=== PATIENT | male | born 1990 | race Caucasian/White ===

== ENCOUNTER 2016-10-06 17:30 | Emergency (ER) | payer OTHER ==
[~2016-10-06] VITALS: Ht 165.1 cm; Wt 75.0 kg
[2016-10-06 17:55] VITALS: Ht 165.1 cm; Wt 75.0 kg
[2016-10-06] MEDS ORDERED: IBUPROFEN 800 MG TAB PO ONE (18:30)
--- NOTE | 2016-10-06 19:08 | RADRPT ---
PROCEDURE: Right hand series CLINICAL INDICATION: Pain status post trauma TECHNIQUE: AP, oblique, and lateral views COMPARISON: None available FINDINGS: Soft tissue swelling is present of the right fourth and fifth rays. An acute, closed, right fifth m etacarpal neck fracture is present with mild palmar angulation of the fifth metatarsal head fragment . Approximately 1 mm of displacement in a radial direction is noted of the fracture fragments. A c omminuted, closed oblique fracture through the base of the right fourth metacarpal with 1 mm displac ement radially of the proximal fracture fragment is noted. No definite evidence for dislocations ar e present. The mineralization and the joint spaces are otherwise well maintained. No radiodense fo reign bodies are present. IMPRESSION: 1. Closed, fractures of the right fifth metacarpal neck and right fourth metacarpal base with minim al displacement as noted above. 2. No evidence for dislocations or radiodense foreign bodies. 3. Soft tissue swelling of the right fourth and fifth rays. RPTAT: HDC .Maria Antonia Philip MD, Date Time Electronically viewed and signed by .Maria Antonia Philip MD, on 10/06/2016 19:07 .C/
[2016-10-06] MEDS ORDERED: HYDR-902 PO (19:19)
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
[2016-10-06 20:12] VITALS: BP 121/76; PULSE 68; RESP 18; TEMP 97
== END 2016-10-06 20:12 | disposition home or self-care (01) ==
LOC: FTE 17:30
DX: S62.334A Displaced fracture of neck of fourth metacarpal bone, right hand, initial encounter for closed fracture (principal); F17.210 Nicotine dependence, cigarettes, uncomplicated; Y04.0XXA Assault by unarmed brawl or fight, initial encounter
CPT/HCPCS: 29125; 73130; Z7502; Z7610

== ENCOUNTER 2016-12-10 19:17 | Emergency (ER) | payer OTHER ==
[~2016-12-10] VITALS: Ht 162.6 cm; Wt 76.0 kg
[~2016-12-10 19:17] MED LIST: HYDR-902 PO
[2016-12-10 19:31] VITALS: Ht 162.6 cm; Wt 76.0 kg
--- NOTE | 2016-12-10 19:59 | ERD ---
ER Documentation Chief Complaint Date/Time DATE: 12/10/16 TIME: 19:57 Chief Complaint fell from work - hit his back - c/o pain right now HPI 26-year-old male states that he slipped and fell at work this afternoon complaining of low back pain. 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 He has no pain at rest, only pain noted when he is moving, achy, localized pain. He denies saddle anesthesia loss of bowel bladder function. ROS All systems reviewed and are negative except as per history of present illness. Medications Home Meds Active Scripts Ibuprofen* (Motrin*) 600 Mg Tab, 600 MG PO Q6, #30 TAB Prov:STACI PINTO PA-C 12/10/16 Hydrocodone/Acetaminophen ([place] 10-325 Tablet) 1 Each Tablet, 1 TAB PO Q6H Y for PAIN, #20 TAB Prov:SARAHY COLVIN DO 10/06/16 Allergies Allergies: Coded Allergies: No Known Allergy (Unverified , 10/06/16) PMhx/Soc Medical and Surgical Hx: pt denies Medical Hx, pt denies Surgical Hx History of Surgery: No (DENIES MEDICAL AND SURGICAL HX.) Hx Alcohol Use: Yes Hx Substance Use: Yes Hx Tobacco Use: Yes Smoking Status: Current every day smoker Physical Exam Vitals Vital Signs Date Time Temp Pulse Resp B/P Pulse Ox O2 Delivery O2 Flow Rate FiO2 12/10/16 19:31 96.3 91 20 117/62 96 Physical Exam General: Well-developed, well-nourished. The patient appears in no acute distress. HEENT: Head is normocephalic, atraumatic. No scleral icterus. Neck: Supple. Nontender. Lungs: Clear to auscultation. Normal air movement. Heart: Regular rate and rhythm. S1 and S2 are normal. No murmurs, gallops, or rubs. Abdomen: Nondistended. Back: No midline tenderness, no bony tenderness, pain only noted with back flexion. Strength lower extremities 5 out of 5 bilaterally. Extremities: No clubbing or cyanosis. Normal pulses. Moving extremities x 4. No weakness. Neurologic: Alert and oriented 3. No focal deficits. Skin: Normal turgor. No rash or lesions. Results 24 hrs Current Medications Medications (Trade) Dose Ordered Sig/Todd Route PRN Reason Start Time Stop Time Status Last Admin Dose Admin Ibuprofen (Motrin) 600 mg ONCE ONCE PO 12/10/16 20:00 12/10/16 20:01 DC 12/10/16 20:04 DIAGNOSTIC IMAGING REPORT Patient: AARON WONG : 1990 Age: 26 Sex: M MR #: [id number] DOS: 12/10/161954 Ordering MD: STACI PINTO PA-C Location: [facility] Room/Bed: PROCEDURE: XR Lumbar Spine. CLINICAL INDICATION: Trauma due to a fall. Low back pain. TECHNIQUE: Three views. AP, lateral and cone-down lateral view of the lumbar spine were obtained. COMPARISON: No prior studies are available for comparison. FINDINGS: There is mild scoliosis convex left. Alignment is otherwise normal. There is no fracture. There is no lytic or blastic lesion. The disk height is normal. The paravertebral soft tissues are unremarkable. IMPRESSION: 1. Mild scoliosis convex left. 2. Otherwise normal images of the lumbar spine. RPTAT: QQ .Camden Boothe MD, MD Date Time Electronically viewed and signed by .Camden Boothe MD, MD on 12/10/2016 20:50 .R/ CC: STACI PINTO PA-C Procedures/MDM 26-year-old male comes in with low back pain status post fall. This appears to be a strain, without any evidence of fracture, dislocation, signs of compression syndrome or cauda equina. X-rays are unremarkable. Patient will be discharged home. Departure Diagnosis: Primary Impression: Injury of back Condition: Good STACI PINTO PA-C Dec 10, 2016 19:59
[2016-12-10] MEDS ORDERED: IBUPROFEN 600 MG TAB PO ONE (20:00)
--- NOTE | 2016-12-10 20:50 | RADRPT ---
PROCEDURE: XR Lumbar Spine. CLINICAL INDICATION: Trauma due to a fall. Low back pain. TECHNIQUE: Three views. AP, lateral and cone-down lateral view of the lumbar spine were obtained. COMPARISON: No prior studies are available for comparison. FINDINGS: There is mild scoliosis convex left. Alignment is otherwise normal. There is no fracture. There is no lytic or blastic lesion. The disk height is normal. The paravertebral soft tissues are unremarkable. IMPRESSION: 1. Mild scoliosis convex left. 2. Otherwise normal images of the lumbar spine. RPTAT: QQ .Camden Boothe MD, Date Time Electronically viewed and signed by .Camden Boothe MD, on 12/10/2016 20:50 .R/
[2016-12-10] MEDS ORDERED: IBUP-1542 PO (21:03)
== END 2016-12-10 21:26 | disposition home or self-care (01) ==
LOC: FTE 19:17
DX: S39.92XA Unspecified injury of lower back, initial encounter (principal); F17.210 Nicotine dependence, cigarettes, uncomplicated; W01.198A Fall on same level from slipping, tripping and stumbling with subsequent striking against other object, initial encounter; Y92.89 Other specified places as the place of occurrence of the external cause
CPT/HCPCS: 72100; Z7502; Z7610

== ENCOUNTER 2017-01-07 10:37 | Emergency (ER) | payer OTHER ==
[~2017-01-07] VITALS: Ht 165.1 cm; Wt 75.0 kg
[~2017-01-07 10:37] MED LIST changes: +IBUP-1542 PO
[2017-01-07 10:39] VITALS: Ht 165.1 cm; Wt 75.0 kg
--- NOTE | 2017-01-07 11:14 | ERD ---
ER Documentation Chief Complaint Date/Time DATE: 01/07/17 TIME: 11:10 Chief Complaint 12/22 r. ankle pain x 2 days HPI Patient is a 26-year-old male with no past medical history presents to the emergency department with right ankle pain 2 days. Patient states that he was playing basketball when he jumped up to get the ball and twisted his ankle. Patient states he is able to bear weight to the affected extremity. Patient does have significant bruising and some swelling. Patient denies any previous injuries to the affected extremity. Patient denies any fevers, chills, nausea, vomiting, head injury, lower back pain or loss of consciousness. 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 ROS All systems reviewed and are negative except as per history of present illness. Medications Home Meds Active Scripts Ibuprofen* (Motrin*) 600 Mg Tab, 600 MG PO Q6, #30 TAB Prov:TEX VASQUEZ PA-C 01/07/17 Ibuprofen* (Motrin*) 600 Mg Tab, 600 MG PO Q6, #30 TAB Prov:STACI PINTO PA-C 12/10/16 Hydrocodone/Acetaminophen ([place] 10-325 Tablet) 1 Each Tablet, 1 TAB PO Q6H Y for PAIN, #20 TAB Prov:SARAHY COLVIN DO 10/06/16 Allergies Allergies: Coded Allergies: No Known Allergy (Unverified , 01/07/17) PMhx/Soc History of Surgery: No (DENIES MEDICAL AND SURGICAL HX.) Hx Alcohol Use: Yes Hx Substance Use: Yes Hx Tobacco Use: Yes Physical Exam Vitals Vital Signs Date Time Temp Pulse Resp B/P Pulse Ox O2 Delivery O2 Flow Rate FiO2 01/07/17 10:39 98.2 68 19 125/86 100 Physical Exam GENERAL: Well-developed, well-nourished male. Appears in no acute distress. HEAD: Normocephalic, atraumatic. EYES: Pupils are equally reactive bilaterally. EOMs grossly intact. No conjunctival erythema. ENT: Moist mucous membranes. No uvula deviation. No kissing tonsils. NECK: Supple. No meningismus. Normal range of motion of the neck. LUNG: Clear to auscultation bilaterally. No rhonchi, wheezing, rales or coarse breath sounds. HEART: Regular rate and rhythm. No murmurs, rubs or gallops. EXTREMITIES: Equal pulses bilaterally. No peripheral clubbing, cyanosis or edema. No unilateral leg swelling. NEUROLOGIC: Alert and oriented. Moving all four extremities without any difficulty. Normal speech. Steady gait. SKIN: Normal color. Warm and dry. No rashes or lesions. RIGHT ANKLE: No deformity noted. Ecchymosis and swelling noted to the lateral aspect of the foot and ankle. Skin intact. Full ROM of motion of the knee. Decreased range of motion of the ankle secondary to swelling. Nontender to palpation of the proximal tibia/fibula. Tender to palpation over the lateral ankle, midfoot and lateral foot. Sensation intact to light touch. Neurovascularly intact. (Able to plantarflex, dorsiflex, shalonda foot, invert foot , raise big toe.) 2+ DP and DT pulses. Soft compartments. Procedures/MDM ED COURSE: The patient was stable throughout ED course. I kept the patient and/or family informed of laboratory and diagnostic imaging results throughout the ED course. DIAGNOSTIC IMAGING: Read by radiologist. DIAGNOSTIC IMAGING REPORT Patient: AARON WONG : 1990 Age: 26 Sex: M MR #: [id number] DOS: 01/07/17 1105 Ordering MD: TEX VASQUEZ PA-C Location: [facility] Room/Bed: PROCEDURE: Right ankle series CLINICAL INDICATION: right ankle and foot pain. Atraumatic pain TECHNIQUE: 3 views. COMPARISON: None FINDINGS: No fractures are noted. No lesions are visualized. No significant degenerative changes are noted. The ankle mortise is intact. The soft tissues are unremarkable. IMPRESSION: 1. No bony abnormalities are identified. RPTAT: HH .Jesse Graves MD, Date Time Electronically viewed and signed by .Jesse Graves MD, on 01/07/2017 12: 16 .G/ CC: TEX VASQUEZ PA-C DIAGNOSTIC IMAGING REPORT Patient: AARON WONG : 1990 Age: 26 Sex: M MR #: [id number] DOS: 01/07/17 1105 Ordering MD: TEX VASQUEZ PA-C Location: [facility] Room/Bed: PROCEDURE: Right foot series CLINICAL INDICATION: right ankle and foot pain. TECHNIQUE: 3 views. COMPARISON: None FINDINGS: No fractures are noted. Joint spaces are well maintained. No erosions are noted. The soft tissues are unremarkable. IMPRESSION: 1. No bony abnormalities are identified. RPTAT: HH .Jesse Graves MD, MD Date Time Electronically viewed and signed by .Jesse Graves MD, on 01/07/2017 12: 16 .G/ CC: TEX VASQUEZ PA-C PROCEDURES: None. MEDICAL DECISION MAKING: This is a 26-year-old male who presents with right ankle pain after ankle twist injury while playing basketball 2 days ago. Is able to ambulate on the affected extremity without any difficulty.. Vital signs were reviewed. Patient was afebrile. X-ray imaging of the right ankle and foot were unremarkable. Given these findings, the patient's presentation is most consistent with ankle and foot strain. I have a much lower clinical concern for ankle dislocation, ankle fracture, tibia fracture, fibula fracture, tibial plateau fracture, Maison[place]uve fracture, foot fracture, osteomyelitis, septic joint, gout, osteoarthritis, DVT, compartment syndrome. At this time, unable to rule out any tendon and ligament injuries. PRESCRIPTIONS: Ibuprofen DISCHARGE: At this time, patient is stable for discharge and outpatient management. Given a copy of all imaging studies obtained today. Patient was given a work note to avoid any weightbearing for one week. RICE therapy and ROM exercises were advised to avoid stiffness. I have instructed the patient to follow-up with his/ her primary care physician in 1-2 days. I have discussed with the patient the possibility of needing to see an metallurgical specialist for further workup and imaging if the pain persists. I have instructed the patient to promptly return to the ER for any new or worsening symptoms including increased pain, swelling, redness, warmth or fever. The patient and/or family expressed understanding of and agreement with this plan. All questions were answered. Home care instructions were provided. Departure Diagnosis: Primary Impression: Ankle injury Encounter type: initial encounter Laterality: right Qualified Code: S99.911A - Ankle injury, right, initial encounter Condition: Stable Patient Instructions: What Are Ankle Sprains? Referrals: [facility] YOU HAVE RECEIVED A MEDICAL SCREENING EXAM AND THE RESULTS INDICATE THAT YOU DO NOT HAVE A CONDITION THAT REQUIRES URGENT TREATMENT IN THE EMERGENCY DEPARTMENT. FURTHER EVALUATION AND TREATMENT OF YOUR CONDITION CAN WAIT UNTIL YOU ARE SEEN IN YOUR DOCTORS OFFICE WITHIN THE NEXT 1-2 DAYS. IT IS YOUR RESPONSIBILITY TO MAKE AN APPOINTMENT FOR FOLOW-UP CARE. IF YOU HAVE A PRIMARY DOCTOR --you should call your primary doctor and schedule an appointment IF YOU DO NOT HAVE A PRIMARY DOCTOR YOU CAN CALL OUR PHYSICIAN REFERRAL HOTLINE AT IF YOU CAN NOT AFFORD TO SEE A PHYSICIAN YOU CAN CHOSE FROM THE FOLLOWING [facility] [address] [facility] [address] [facility]. [facility] [address] [facility] [address] [facility] [address] [facility]. [facility]. [address] [facility] [address] [facility] YOU HAVE RECEIVED A MEDICAL SCREENING EXAM AND THE RESULTS INDICATE THAT YOU DO NOT HAVE A CONDITION THAT REQUIRES URGENT TREATMENT IN THE EMERGENCY DEPARTMENT. FURTHER EVALUATION AND TREATMENT OF YOUR CONDITION CAN WAIT UNTIL YOU ARE SEEN IN YOUR DOCTORS OFFICE WITHIN THE NEXT 1-2 DAYS. IT IS YOUR RESPONSIBILITY TO MAKE AN APPOINTMENT FOR FOLOW-UP CARE. IF YOU HAVE A PRIMARY DOCTOR --you should call your primary doctor and schedule and appointment IF YOU DO NOT HAVE A PRIMARY DOCTOR YOU CAN CALL OUR PHYSICIAN REFERRAL HOTLINE AT . IF YOU CAN NOT AFFORD TO SEE A PHYSICIAN YOU CAN CHOSE FROM THE FOLLOWING [facility], [facility] INSTITUTIONS: [facility] [address] [place] [address] [facility] [address] [place] [address] [facility] + [facility] [address] [place] [address] [facility] Hours: Mon-Thu 9:00 AM - 5:00 PM Additional Instructions: Call your primary care doctor TOMORROW for an appointment during the next 1-2 days.See the doctor sooner or return here if your condition worsens before your appointment time. Unable to rule out any ligament or tendon injuries at this time. Patient was advised that he will need to follow-up with an metallurgical specialist for further management of his symptoms of his pain persists. Patient may need an MRI on an outpatient basis. TEX VASQUEZ PA-C Jan 07, 2017 11:14
--- NOTE | 2017-01-07 12:16 | RADRPT ---
PROCEDURE: Right foot series CLINICAL INDICATION: right ankle and foot pain. TECHNIQUE: 3 views. COMPARISON: None FINDINGS: No fractures are noted. Joint spaces are well maintained. No erosions are noted. The soft tissues are unremarkable. IMPRESSION: 1. No bony abnormalities are identified. RPTAT: HH .Jesse Graves MD, MD Date Time Electronically viewed and signed by .Jesse Graves MD, on 01/07/2017 12:16 .G/
--- NOTE | 2017-01-07 12:16 | RADRPT ---
PROCEDURE: Right ankle series CLINICAL INDICATION: right ankle and foot pain. Atraumatic pain TECHNIQUE: 3 views. COMPARISON: None FINDINGS: No fractures are noted. No lesions are visualized. No significant degenerative changes are noted. The ankle mortise is intact. The soft tissues are unremarkable. IMPRESSION: 1. No bony abnormalities are identified. RPTAT: HH .Jesse Graves MD, MD Date Time Electronically viewed and signed by .Jesse Graves MD, on 01/07/2017 12:16 .G/
[2017-01-07] MEDS ORDERED: IBUP-1542 PO (12:25)
== END 2017-01-07 12:41 | disposition home or self-care (01) ==
LOC: FTE 10:37
DX: S99.911A Unspecified injury of right ankle, initial encounter (principal); X50.1XXA Overexertion from prolonged static or awkward postures, initial encounter; Y92.9 Unspecified place or not applicable
CPT/HCPCS: 73610; 73630; Z7502